=== PATIENT | female | born 2000 | race Caucasian/White ===

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

== ENCOUNTER 2020-01-24 07:44 | Outpatient (CLI) | payer OTHER ==
--- NOTE | 2020-01-24 08:47 | MRI ---
MR the lumbar spine without contrast: 01/24/2020 History: Lumbar radiculopathy, back pain, pars fracture COMPARISON: None available TECHNIQUE: Multiplanar multisequence MR images were obtained of lumbar spine without IV contrast FINDINGS: On the basis of 5 lumbar type vertebral bodies, conus medullaris terminates at [id number] level. Sagittal STIR imaging demonstrates no focal area of osseous marrow edema. T12-L1:Unremarkable L1-2:Unremarkable L2-3:Unremarkable L3-4:Unremarkable L4-5:Unremarkable L5-S1:Unremarkable Image retroperitoneal structures demonstrateno acute findings. IMPRESSION: No significant central canal or neural foraminal stenosis within the lumbar spine.
== END 2020-01-24 07:45 | disposition home or self-care (01) ==
LOC: SCSMRI 07:44
DX: M54.5 Low back pain (principal)
CPT/HCPCS: 72148